=== PATIENT | female | born 1975 | race Caucasian/White ===

== ENCOUNTER 2019-11-25 20:30 | Observation (INO) ==
[~2019-11-25 20:30] MED LIST: cefTRIAXone 1,000 MG in Water for inj. (sterile) 10 ML IVPB SCH
[2019-11-25] MEDS ORDERED: Naloxone 0.4 MG/ML INJ IVP PRN (22:30)
[2019-11-25] MEDS ORDERED: Ondansetron 4 MG/2 ML VIAL IVP PRN (22:30)
[2019-11-25 23:22] LABS: Basophils % 0.1 %; Hematocrit 25.6 % (35.3-44.9); Hemoglobin 7.7 g/dL (11.5-15.4); Immature Granulocytes % 0.4 % (0-4); Lymphocytes # 0.8 K/mcL (0.6-4.6); Lymphocytes % 4.4 %; Mean Corpuscular HGB Conc 30.1 g/dL (31.6-35.5); Mean Corpuscular Hemoglobin 23.1 pg (28.0-33.3); Mean Corpuscular Volume 76.9 fL (83.0-100.0); Mean Platelet Volume 8.6 fL (9.4-12.4); Monocytes # 1.2 K/mcL (0.0-1.3); Monocytes % 6.8 %; Neutrophils # 15.4 K/mcL (1.6-8.9); Platelet Count 390 K/mcL (140-400); Red Blood Count 3.33 M/mcL (3.82-4.97); Red Cell Distribution Width 16.8 % (11.5-14.5); Segmented Neutrophils % 88.3 %; White Blood Count 17.4 K/mcL (4.3-11.1)
[2019-11-25 23:28] LABS: Prothrombin Time 11.3 Seconds (9.4-12.1)
[2019-11-25 23:31] LABS: Activated Partial Thrombo Time 28.8 Seconds (26.0-36.0)
[2019-11-25 23:36] LABS: Bilirubin,Urine Negative (Negative); Blood,Urine Negative (Negative); Clarity,Urine Clear (Clear); Color,Urine Colorless (Yellow); Glucose,Urine (UA) Normal (Normal); Ketones,Urine Negative (Negative); Leukocyte Esterase,Urine Negative (Negative); Nitrite,Urine Negative (Negative); PH,Urine 6.5 pH Units (5.0-8.0); Protein,Urine Negative (Neg-Trace); Specific Gravity,Urine < 1.005 (1.010-1.025); Urobilinogen,Urine Normal (Normal)
[2019-11-25 23:44] LABS: Alanine Aminotransferase 22 Units/L (7-52); Albumin 3.4 g/dL (3.5-5.7); Albumin/Globulin Ratio 1.5 (1.1-2.2); Alkaline Phosphatase 86 Units/L (34-104); Aspartate Amino Transferase 28 Units/L (13-39); BUN/Creatinine Ratio 20 (6-26); Bilirubin,Total 1.1 mg/dL (0.3-1.0); Blood Urea Nitrogen 15 mg/dL (6-20); Calcium 8.2 mg/dL (8.6-10.3); Carbon Dioxide 20 mEq/L (23-29); Chloride 102 mEq/L (98-107); Globulin 2.3 g/dL (2.4-3.5); Glucose 125 mg/dL (70-105); Osmolality,Calculated 276 (280-300); Potassium 3.9 mEq/L (3.5-5.1); Sodium 132 mEq/L (136-145); Total Protein 5.7 g/dL (6.4-8.9); eGFR For African Americans > 60 (> 60); eGFR For Non-African Americans > 60 (> 60)
[2019-11-25 23:47] LABS: Amphetamine Screen,Urine Negative ng/mL (Cutoff=1000); Barbiturate Screen,Urine Negative ng/mL (Cutoff=200); Benzodiazepines Screen,Urine Negative ng/mL (Cutoff=200); Cannabinoid Screen,Urine Negative ng/mL (Cutoff = 50); Cocaine Screen,Urine Negative ng/mL (Cutoff= 300); Opiate Screen,Urine Negative ng/mL (Cutoff=300); Phencyclidine Screen,Urine Negative ng/mL (Cutoff=25)
[2019-11-25 23:51] LABS: Troponin I 0.04 ng/mL (< 0.04)
[2019-11-25 23:57] LABS: Thyroid Stimulating Hormone 1.104 mcIU/mL (0.340-5.600)
[2019-11-26] MEDS ORDERED: 0.9 % Sodium Chloride 1,000 ML IVC SCH (02:30)
[2019-11-26] MEDS ORDERED: *HR* LORazepam 2 MG/ML VIAL IVP PRN ×3 (02:37)
[2019-11-26] MEDS ORDERED: Pantoprazole 40 MG VIAL IVP SCH (06:00)
[2019-11-26] MEDS ORDERED: Lidocaine -MPF 2% 2 ML VIAL ONE (09:05)
[2019-11-26] MEDS ORDERED: *HR* Midazolam HCl 2 MG/2 ML VIAL ONE (09:16)
[2019-11-26 09:38] LABS: Hematocrit 27.9 % (35.3-44.9); Hemoglobin 8.3 g/dL (11.5-15.4)
[2019-11-26 09:48] VITALS: BP 127/72
[2019-11-26] MEDS ORDERED: Iron Sucrose Complex 400 MG in 0.9 % Sodium Chloride 250 ML IVPB ONE (10:15)
[2019-11-26] MEDS ORDERED: Sucralfate 1 GM TABLET PO SCH (12:00)
[2019-11-26] MEDS ORDERED: Thiamine (B-1) 100 MG, Folic Acid 1 MG, MVI, adult with vitamin K 10 ML in 0.9 % Sodi... IVPB SCH (18:00)
== END 2019-11-26 14:40 | disposition home or self-care (01) ==
LOC: 3ANU → SUATTDRO 22:06
PROVIDERS: ADMIT Internal Medicine; ATTEND Internal Medicine